=== PATIENT | female | born 1950 | race Caucasian/White ===

== ENCOUNTER 2017-07-25 06:17 | Day surgery (SDC) | payer OTHER ==
[2017-07-25] MEDS ORDERED: PROPOFOL 20 ML (06:27)
[2017-07-25] MEDS ORDERED: LIDOCAINE 2% (SDV) 5 ML INJ (06:27)
[2017-07-25] MEDS ORDERED: FENTAnyl 50 MCG/ML VIAL (06:27)
[2017-07-25] MEDS ORDERED: MIDAZOLAM 1 MG/ML 2 ML INJ (06:27)
[2017-07-25] MEDS ORDERED: NEOSTIGMINE 3 MG/3 ML SYRINGE (06:27)
[2017-07-25] MEDS ORDERED: ROCURONIUM 50 MG INJ (06:27)
[2017-07-25] MEDS ORDERED: GLYCOPYRROLATE 0.4 MG INJ (06:27)
[2017-07-25] MEDS ORDERED: ONDANSETRON 4 MG INJ (06:28)
[2017-07-25] MEDS ORDERED: DEXAMETHASONE 4 MG/ML 1 ML INJ (06:28)
[2017-07-25] MEDS ORDERED: OXYCODONE/ACETAMINOPHEN (5/325) TAB PO ×2 (06:30)
[2017-07-25] MEDS ORDERED: MIDAZOLAM 1 MG/ML 2 ML INJ IV (06:30)
[2017-07-25] MEDS ORDERED: LABETALOL HCL 20MG INJ IV (06:30)
[2017-07-25] MEDS ORDERED: HYDROmorphONE (0.2 MG/ML) 10ML SYG IV ×3 (06:30)
[2017-07-25] MEDS ORDERED: morphine (1 MG/ML) 10ML SYRINGE IV ×3 (06:30)
[2017-07-25] MEDS ORDERED: ATROPINE 1 MG/10 ML SYRINGE IV (06:30)
[2017-07-25] MEDS ORDERED: hydrALAzine 20 MG INJ IV (06:30)
[2017-07-25] MEDS ORDERED: FENTAnyl 50 MCG/ML VIAL IV ×2 (06:30)
[2017-07-25] MEDS ORDERED: MEPERIDINE 25 MG INJ IV (06:30)
[2017-07-25] MEDS ORDERED: EPHEDrine SULFATE 50 MG/5 ML SYG IV (06:30)
[2017-07-25] MEDS ORDERED: ONDANSETRON 4 MG INJ IV (06:30)
[2017-07-25] MEDS ORDERED: DIPHENHYDRAMINE 50 MG INJ IV (06:30)
[2017-07-25] MEDS ORDERED: SUCCINYLCHOLINE CHLORIDE 100 MG/5 ML SYG IV (06:31)
[2017-07-25] MEDS ORDERED: ROPIVACAINE 0.5 % 30 ML VIAL ×2 (06:42→06:48)
[2017-07-25] MEDS ORDERED: POLYMYXIN/BACITRACIN 1L IRRIG (06:42)
[2017-07-25] MEDS ORDERED: CEFAZOLIN 1 GM INJ (07:00)
[2017-07-25] MEDS ORDERED: morphine 2 MG INJ IV (08:00)
[2017-07-25] MEDS: POLYMYXIN/BACITRACIN 1L IRRIG IRR (08:43)
[2017-07-25] MEDS ORDERED: FLUMAZENIL 0.5 MG INJ (09:34)
[2017-07-25] MEDS ORDERED: LABETALOL HCL 20MG INJ (09:50)
== END 2017-07-25 11:50 | disposition home or self-care (01) ==
LOC: SDS 06:17
DX: M20.22 Hallux rigidus, left foot (principal)
CPT/HCPCS: 28291; 73620; 82306